=== PATIENT | female | born 1960 | race Caucasian/White ===

== ENCOUNTER → 2024-04-07 09:03 | Outpatient (REF) | payer BC, SELFPAY | LOC: HWWDC 09:03 | PROVIDERS: ATTENDING PHYSICIAN Family Medicine | DX: Z12.31 Encounter for screening mammogram for malignant neoplasm of breast (principal) | CPT/HCPCS: 77063; 77067 ==

== ENCOUNTER → 2024-06-12 11:34 | Outpatient (REF) | payer BC, SELFPAY | LOC: HWRAD 11:34 | PROVIDERS: ATTENDING PHYSICIAN Family Medicine | DX: R10.31 Right lower quadrant pain (principal) | CPT/HCPCS: 74176 ==

== ENCOUNTER → 2024-06-20 11:12 | Outpatient (REF) | payer BC, SELFPAY | LOC: HWRAD 11:12 | PROVIDERS: ATTENDING PHYSICIAN Family Medicine | DX: M54.50 Low back pain, unspecified (principal) | CPT/HCPCS: 72072; 72110 ==

== ENCOUNTER → 2024-07-02 09:27 | Outpatient (REF) | payer BC, SELFPAY | LOC: HWRAD 09:27 | PROVIDERS: ATTENDING PHYSICIAN Family Medicine | DX: D25.9 Leiomyoma of uterus, unspecified (principal) | CPT/HCPCS: 76830; 76856 ==

== ENCOUNTER → 2024-07-09 07:31 | Outpatient (REF) | payer BC, SELFPAY | LOC: WDC 07:31 | PROVIDERS: ATTENDING PHYSICIAN Family Medicine | DX: R92.30 Dense breasts, unspecified (principal) | CPT/HCPCS: 76641 ==

== ENCOUNTER → 2024-07-16 14:31 | Outpatient (REF) | payer BC, SELFPAY | LOC: HWRAD 14:31 | PROVIDERS: ATTENDING PHYSICIAN Family Medicine | DX: R10.2 Pelvic and perineal pain (principal) | CPT/HCPCS: 73522 ==

== ENCOUNTER → 2025-01-30 07:56 | Outpatient (REF) | payer MEDICARE, BC, SELFPAY | LOC: RCS 07:56 | PROVIDERS: ATTENDING PHYSICIAN Internal Medicine Cardiovascular Disease; FAMILY PHYSICIAN Family Medicine | DX: E78.5 Hyperlipidemia, unspecified (principal); R94.31 Abnormal electrocardiogram [ECG] [EKG]; I44.4 Left anterior fascicular block; R07.89 Other chest pain; R00.2 Palpitations; E78.00 Pure hypercholesterolemia, unspecified; R06.02 Shortness of breath | CPT/HCPCS: 78452; 93017; A9500; J2785 ==

== ENCOUNTER → 2025-02-03 12:31 | Outpatient (REF) | payer MEDICARE, BC, SELFPAY | LOC: RCS 12:31 | PROVIDERS: ATTENDING PHYSICIAN Internal Medicine Cardiovascular Disease; FAMILY PHYSICIAN Family Medicine | DX: E78.5 Hyperlipidemia, unspecified (principal); R94.31 Abnormal electrocardiogram [ECG] [EKG]; I44.4 Left anterior fascicular block; R07.89 Other chest pain; R00.2 Palpitations; E78.00 Pure hypercholesterolemia, unspecified | CPT/HCPCS: 93306 ==

== ENCOUNTER → 2025-07-14 09:54 | Outpatient (REF) | payer MEDICARE, BC, SELFPAY | LOC: HWWDC 09:54 | PROVIDERS: ATTENDING PHYSICIAN Family Medicine | DX: Z12.31 Encounter for screening mammogram for malignant neoplasm of breast (principal) | CPT/HCPCS: 77063; 77067 ==